=== PATIENT | female | born 2000 | race Two or more races ===

== ENCOUNTER 2023-08-03 01:11 | Emergency (ER) | payer MEDICAID, OTHER ==
[~2023-08-03] VITALS: Ht 152.4 cm; Wt 59.1 kg
[2023-08-03 01:42] VITALS: BP 121/80; PULSE 92; RESP 15; TEMP 97.3
[2023-08-03] MEDS ORDERED: HYDR50TA32 PO (03:09)
[2023-08-03 03:32] VITALS: O2SAT 100
== END 2023-08-03 03:51 | disposition home or self-care (01) ==
LOC: ER 01:11
DX: F41.9 Anxiety disorder, unspecified (principal)

== ENCOUNTER 2023-12-10 02:26 | Emergency (ER) | payer MEDICAID ==
[~2023-12-10] VITALS: Ht 152.4 cm; Wt 56.1 kg
[~2023-12-10 02:26] MED LIST: HYDR50TA32 PO
[2023-12-10 02:35] VITALS: BP 105/70; PULSE 80; RESP 16; TEMP 98.1
[2023-12-10] MEDS: diphenhdrAMINE HCL 50 MG/1 ML VL IM ONE (04:24)
[2023-12-10] MEDS: DexAMETHasone SOD PHOS 10MG/1ML VIAL INJ IM ONE (04:26)
[2023-12-10 04:40] VITALS: O2SAT 94
== END 2023-12-10 04:45 | disposition home or self-care (01) ==
LOC: ER 02:26
DX: L50.9 Urticaria, unspecified (principal)
CPT/HCPCS: 96372; 99284; J1100; J1200